=== PATIENT | male | born 1955 | race Caucasian/White ===

== ENCOUNTER 2024-01-26 05:56 | Day surgery (SDC) | payer MEDICARE ==
[2024-01-26 06:27] VITALS: O2SAT 98
[2024-01-26] MEDS ORDERED: Lactated Ringers 1,000 ML IV SCH (06:30)
[2024-01-26] MEDS ORDERED: DIPRIVAN 200 MG/20 ML IV ONE ×2 (06:58→07:14)
[2024-01-26] MEDS ORDERED: Xylocaine-Mpf 2% 5 Ml Vial ONE (07:08)
[2024-01-26 08:13] VITALS: BP 130/79; PULSE 54; RESP 16; TEMP 97
--- NOTE | 2024-01-27 10:00 | OP ---
SURGERY DATE/TIME: 01/26/2024 0700 - PREOPERATIVE DIAGNOSIS: Screening colonoscopy. POSTOPERATIVE DIAGNOSES: 1) Normal colon. 2) Diverticulosis. PROCEDURE: Colonoscopy. SURGEON: Perfecto Simmons MD ANESTHESIA: MAC, by Brock Nicole CRNA. ESTIMATED BLOOD LOSS: None. SPECIMENS: None. DESCRIPTION OF PROCEDURE AND FINDINGS: After informed written consent was obtained, the patient was taken to the endoscopy suite. He was placed in a left lateral decubitus position, and anesthesia was titrated to desired level of consciousness. Digital rectal exam showed normal sphincter tone and no internal lesions. The scope was inserted in the rectum, and sequentially the entire colonic mucosa was traversed. The level of the cecum was reached and verified under direct visualization of the ileocecal valve. Upon withdrawal, careful mucosal inspection revealed no gross abnormalities other than scattered diverticula. Prep was noted to be fair. Prior to withdrawal, retroflexion was performed and showed no internal lesions. The scope was removed, and patient was transferred to the recovery room in good condition.
== END 2024-01-26 08:15 | disposition home or self-care (01) ==
LOC: SDC 05:56
PROVIDERS: ATTEND Family Medicine
DX: Z12.11 Encounter for screening for malignant neoplasm of colon (principal); K57.30 Diverticulosis of large intestine without perforation or abscess without bleeding
CPT/HCPCS: J2704